=== PATIENT | female | born 2000 | race American Indian/Alaskan Native ===

== ENCOUNTER 2020-10-31 12:25 | Outpatient (CLI) | payer OTHER ==
--- NOTE | 2020-10-31 13:17 | XRay Report ---
RIGHT SHOULDER 3 VIEWS INDICATION: RIGHT SHOULDER PAIN. COMPARISON: None. IMPRESSION: No acute osseous or soft tissue abnormality. No significant DJD. Signer Name: Dominguez Escobar Jr, MD Signed: 10/31/2020 1:12 PM Workstation Name: [id number]
== END 2020-10-31 12:26 | disposition home or self-care (01) ==
LOC: XRAY 12:25
PROVIDERS: ATTEND Nurse Practitioner Pediatrics
DX: M25.511 Pain in right shoulder (principal)